=== PATIENT | male | born 1975 | race Two or more races ===

== ENCOUNTER 2021-04-17 19:37 | Emergency (ER) | payer OTHER ==
[~2021-04-17] VITALS: Ht 175.3 cm; Wt 72.6 kg
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
--- NOTE | 2021-04-17 21:07 | NUR ---
PT IS MEDICALLY CLEAR FOR D/C. [facility] condition. Written and verbal after care instructions given. Patient verbalizes understanding of instruction.
[2021-04-17 21:08] VITALS: BP 148/84
== END 2021-04-17 21:08 ==
LOC: ER 19:46
DX: Z02.89 Encounter for other administrative examinations (principal); F17.200 Nicotine dependence, unspecified, uncomplicated; Z60.2 Problems related to living alone
CPT/HCPCS: 74021